=== PATIENT | female | born 1980 | race Caucasian/White ===

== ENCOUNTER 2018-03-10 14:32 | Emergency (ER) | payer BC ==
[2018-03-10 14:41] VITALS: BP 140/100
[2018-03-10] MEDS ORDERED: Acetaminophen/HYDROcodone 325-5 MG Tab PO ONE (15:25)
--- NOTE | 2018-03-10 16:07 | CR ---
Abdomen: Supine and upright views of the abdomen were obtained. Comparison: No prior abdominal x-ray, previous CT abdomen and pelvis exam of 09/28/13. Calcification is seen within the right side of the pelvis having the appearance of a phlebolith. Bowel gas pattern is normal. Previous cholecystectomy is noted. Mild scoliosis is noted within the spine. No free air is seen. Impression: 1. Incidental findings. Diagnostic code #2
--- NOTE | 2018-03-10 16:20 | EDM.PDOC ---
ED HPI GENERAL MEDICAL PROBLEM - General Chief Complaint: Genitourinary Problem Stated Complaint: BLADDER INFECTION Time Seen by Provider: 03/10/18 15:10 Source of Information: Reports: Patient History Limitations: Reports: No Limitations - History of Present Illness INITIAL COMMENTS - FREE TEXT/NARRATIVE: Patient is a 37 y/o female who presents to the E.D. complaining of right adnexa pain and incomplete emptying of urine. States she was diagnosed with a UTI this past Thursday and placed on Cipro. States she does not have really any pain with urination. Urine color is yellow with no foul odor. States she had intercourse this a.m. with significant amount of pain. She has history of right sided ovarian cyst with similar symptoms. She has had a partial hysterectomy, appendectomy, and cholecystectomy. She had removal of the left fallopian tube secondary to lesion within it. She's also had a parathyroidectomy. She denies any abnormal vaginal discharge. She is in a monogamous relationship with no concerns of STDs. Bowel habits have been the same. Currently pain is a 5 out of 10. Lower Abdomen Pain Score (Numeric/FACES): 5 - Related Data Allergies Allergy/AdvReac Type Severity Reaction Status Date / Time morphine Allergy Rash Verified 03/10/18 14:41 Sulfa (Sulfonamide Allergy Rash Verified 03/10/18 14:41 Antibiotics) Home Meds: Home Meds Losartan [Cozaar] 100 mg PO DAILY 06/19/15 [History] Propranolol [Inderal LA] 160 mg PO DAILY 06/19/15 [History] amLODIPine Besylate [Amlodipine Besylate] 5 mg PO DAILY 06/19/15 [History] Ciprofloxacin [IJD: Ciprofloxacin HCl] 500 mg PO BID 03/10/18 [History] Past Medical History Cardiovascular History: Reports: Hypertension Neurological History: Reports: Migraines Other Hematologic History: polycythemia - Past Surgical History GI Surgical History: Reports: Appendectomy, Cholecystectomy Female Surgical History: Reports: Section, Hysterectomy, Tubal Ligation, Other (See Below) Other Female Surgeries/Procedures: removal of lesion of fallopian tube Other Endocrine Surgeries/Procedures: parathyroidectomy Social & Family History - Tobacco Use Smoking Status *Q: Never Smoker - Caffeine Use Caffeine Use: Reports: Soda - Recreational Drug Use Recreational Drug Use: No ED ROS GENERAL - Review of Systems Review Of Systems: See Below Constitutional: Reports: Decreased Appetite. Denies: Fever, Chills, Malaise, Weakness Respiratory: Reports: No Symptoms Cardiovascular: Reports: No Symptoms GI/Abdominal: Reports: Abdominal Pain, Constipation, Decreased Appetite, Nausea. Denies: Black Stool, Bloody Stool, Diarrhea, Difficulty Swallowing, Distension, Flatus, Hematemesis, Hematochezia, Melena, Vomiting : Reports: Frequency, Pain, Urinary Retention. Denies: Discharge, Dysuria, Flank Pain Musculoskeletal: Reports: Back Pain (low back) Neurological: Reports: No Symptoms ED EXAM, GI/ABD - Physical Exam Exam: See Below Exam Limited By: No Limitations General Appearance: Alert, WD/WN, No Apparent Distress Nose: Normal Inspection Throat/Mouth: Normal Voice, No Airway Compromise Neck: Normal Inspection, Supple Respiratory/Chest: No Respiratory Distress, Lungs Clear, Normal Breath Sounds, Chest Non-Tender Cardiovascular: Normal Peripheral Pulses, Regular Rate, Rhythm GI/Abdominal Exam: Normal Bowel Sounds, Soft, No Organomegaly, No Distention, Tender (right adnexal pain) (Female) Exam: Deferred Back Exam: Normal Inspection. No: CVA Tenderness (L), CVA Tenderness (R) Neurological: Alert, Oriented, CN II-XII Intact, Normal Cognition, No Motor/ Sensory Deficits Psychiatric: Normal Affect, Normal Mood Skin Exam: Warm, Dry, Intact, Normal Color, No Rash Course - Vital Signs Last Recorded V/S: Last Vital Signs Temp 97.6 F 03/10/18 14:38 Pulse 90 03/10/18 14:38 Resp 16 03/10/18 14:38 BP 140/100 H 03/10/18 14:38 Pulse Ox 100 03/10/18 14:38 - Orders/Labs/Meds Labs: Laboratory Tests 03/10/18 03/10/18 03/10/18 Range/Units 14:58 16:10 16:10 WBC 10.44 H (3.98-10.04) K/mm3 RBC 4.83 (3.98-5.22) M/mm3 Hgb 15.1 (11.2-15.7) gm/L Hct 44.4 (34.1-44.9) % MCV 91.9 (79.4-94.8) fl MCH 31.3 (25.6-32.2) pg MCHC 34.0 (32.2-35.5) g/dl RDW Std Deviation 39.7 (36.4-46.3) fL Plt Count 297 (182-369) K/mm3 MPV 9.2 L (9.4-12.3) fl Neutrophils % (Manual) 76 H (40-60) % Band Neutrophils % 0 (0-10) % Lymphocytes % (Manual) 22 (20-40) % Atypical Lymphs % 0 % Monocytes % (Manual) 1 L (2-10) % Eosinophils % (Manual) 1 (0.7-5.8) % Basophils % (Manual) 0 L (0.1-1.2) Platelet Estimate Adequate RBC Morph Comment Normal Sodium 140 (136-145) mEq/L Potassium 3.6 (3.5-5.1) mEq/L Chloride 103 (98-107) mEq/L Carbon Dioxide 29 (21-32) mEq/L Anion Gap 11.6 (5-15) BUN 10 (7-18) mg/dL Creatinine 1.0 (0.55-1.02) mg/dL Est Cr Clr Drug Dosing 75.63 mL/min Estimated GFR (MDRD) > 60 (>60) mL/min BUN/Creatinine Ratio 10.0 L (14-18) Glucose 105 (74-106) mg/dL Calcium 9.3 (8.5-10.1) mg/dL Total Bilirubin 0.3 (0.2-1.0) mg/dL AST 15 (15-37) U/L ALT 16 (14-59) U/L Alkaline Phosphatase 84 (46-116) U/L C-Reactive Protein 1.7 H* (<1.0) mg/dL Total Protein 8.0 (6.4-8.2) g/dl Albumin 4.1 (3.4-5.0) g/dl Globulin 3.9 gm/dL Albumin/Globulin Ratio 1.1 (1-2) Urine Color Yellow (Yellow) Urine Appearance Clear (Clear) Urine pH 6.0 (5.0-8.0) Ur Specific [place] 1.020 (1.005-1.030) Urine Protein Negative (Negative) Urine Glucose (UA) Negative (Negative) Urine Ketones Negative (Negative) Urine Occult Blood Negative (Negative) Urine Nitrite Negative (Negative) Urine Bilirubin Negative (Negative) Urine Urobilinogen 0.2 (0.2-1.0) Ur Leukocyte Esterase Negative (Negative) Urine RBC 0-5 (0-5) /hpf Urine WBC 0-5 (0-5) /hpf Ur Epithelial Cells 0-5 (0-5) /hpf Urine Bacteria Not seen (FEW) /hpf Urine Mucus Not seen (FEW) /hpf Meds: Medications Discontinued Medications Generic Name Dose Route Start Last Admin Trade Name Freq PRN Reason Stop Dose Admin Hydrocodone Bitart/Acetaminophen 1 tab 03/10/18 15:25 03/10/18 16:09 [place] 325-5 Mg PO 03/10/18 15:26 1 tab ONETIME ONE Administration - Re-Assessments/Exams Free Text/Narrative Re-Assessment/Exam: Patient refuses IV. Will order [place] one tab by mouth. Initial labs and studies will include CBC, chem 14, CRP, and transvaginal non-OB ultrasound to evaluate right adnexal tenderness. UA is completely clean. Reviewed final urine culture March 10, 2018. Organism Escherichia coli, colony count 80,000 and 90,000. Susceptible to ciprofloxacin. X-ray of the abdomen did not reveal any acute findings. Transvaginal Non OB ultrasound impression: 03/10/18 17:15 Patient refuses IV. Will order [place] one tab by mouth. Initial labs and studies will include CBC, chem 14, CRP, and transvaginal non-OB ultrasound to evaluate right adnexal tenderness. Ultrasound/transvaginal non-OB impression: Incidental findings as noted above. UA is completely clean. Reviewed final urine culture March 10, 2018. Organism Escherichia coli, colony count 80,000 and 90,000. Susceptible to ciprofloxacin. Labs reviewed: CBC and CMP were essentially normal. CRP 1.7. UA was negative for infection. Patient has a ride. Will discharge patient home with instructions as documented. Departure - Departure Time of Disposition: 17:16 Disposition: Home, Self-Care 01 Condition: Good Clinical Impression: Adnexal pain - Discharge Information Instructions: Abdominal Pain, Adult Referrals: Darya Vergara [employer] [Primary Care Provider] - Forms: ED Department Discharge Additional Instructions: As discussed ultrasound and labs did not reveal any concerning findings. Take Tylenol and ibuprofen in alternating fashion for discomfort. Refrain from any sexual intercourse or activities that cause worsening discomfort. Follow-up with her [employer] specialist in the next 2-5 days for reevaluation. No driving this evening since receiving a sedative medication. Return to the ED if you develop any new or worsening symptoms.
--- NOTE | 2018-03-10 16:30 | US ---
Pelvic ultrasound: Multiple real-time images were obtained transvaginally. Comparison: No prior pelvic ultrasound. Small amount of free fluid is seen. Uterus not visualized. Left ovary poorly visualized due to bowel gas. Right ovary shows a small cystic structure measuring 2.4 cm which is felt to be physiologic. Ovaries are otherwise unremarkable. Measurements: Right ovary: 3.9 x 2.4 x 3.1 cm Left ovary: 3.4 x 1.4 x 1.8 cm Impression: 1. Incidental findings as noted above. Diagnostic code #2
== END 2018-03-10 17:26 | disposition home or self-care (01) ==
LOC: JD.ED 14:32
DX: R10.2 Pelvic and perineal pain (principal); I10 Essential (primary) hypertension; Z88.5 Allergy status to narcotic agent; Z79.899 Other long term (current) drug therapy
CPT/HCPCS: 36415; 74019; 76830; 80053; 81001; 85025; 86140; 99284; A9270; 99283